=== PATIENT | male | born 1995 | race Hispanic/Latino ===

== ENCOUNTER 2016-08-02 20:12 | Emergency (ER) | payer OTHER ==
[~2016-08-02] VITALS: Ht 165.1 cm; Wt 93.0 kg
--- NOTE | 2016-08-02 21:59 | ED SKIN/ALLERGY COMPLAINT ---
History of Present Illness General Chief Complaint: Allergy Symptoms Stated Complaint: ALLERGIC RXN STARTED YEST, RASH,HAND SWELLING Source: patient, family, old records Exam Limitations: no limitations Vital Signs & Intake/Output Vital Signs & Intake/Output Vital Signs Date Time Temp Pulse Resp B/P Pulse O2 O2 Flow FiO2 Ox Delivery Rate 08/02 2218 97.7 93 18 133/75 97 Room Air 08/02 2023 97.5 101 18 133/86 98 Room Air Allergies Coded Allergies: No Known Allergies (08/02/16) Reconcile Medications Methylprednisolone. (Medrol) 4 MG TAB.DS.PK 1 DP PO AD urticaria 6 on day 1 then reduce by one tablet daily until gone Triage Note: REPORTS YESTERDAY AT NOON HE NOTICE A RASH ON HIS LEFT ELBOW AND A WHILE LATER IT SPREAD ON BILATERAL AND TRUNK. HE REPORTS THE RASH HAS BEEN INTERMITTENT SINCE. HAS BEEN TAKING OTC ANTIHISTAMINE WITH + EFFECT YET THE RASH RETURNS AFTER A WHILE. Triage Nurses Notes Reviewed? yes Onset: Abrupt Duration: day(s): (3), intermittent Timing: recent history Severity: mild, moderate Severity Numbers: 5 Location: extremities, generalized Possible Factors: no cause identified No Modifying Factors: none Associated Symptoms: DENIES HPI: This is a 20-year-old male with history of asthma presents to the emergency room with his father for evaluation complaining of intermittent pruritic rash to his hands trunk abdomen and back for the past 3 days for which he's been using over- the-counter Benadryl with improvement however he states the rash returns. He denies any shortness of breath sore throat difficulty swallowing lip or tongue swelling. No history of similar symptoms in the past. He denies any exposure to any possible known allergens no new soaps detergents or foods. He is currently on penicillin for a upper respiratory infection which he has been on in the past without suffering allergic reaction. (CHIRAG VILLAGRAN) Past History Travel History Traveled to [place] past 21 day No Medical History Any Pertinent Medical History? see below for history Respiratory: asthma Surgical History Surgical History: none Psychosocial History Past Psychosocial History Unobtainable at this time What is your primary language Bengali Tobacco Use: Never used Family History Hx Contributory? No (CHIRAG VILLAGRAN) Review of Systems Review of Systems Constitutional: Reports: see HPI. All Other Systems: Reviewed and Negative Comments Review of systems: See HPI, All other systems negative. Constitutional, no chills no fever, no malaise HEENT: No visual changes no sore throat no congestion, Cardiovascular: No chest pain , no palpitation Skin, SEE HPI Respiratory: No dyspnea no cough no sputum GI: No nausea no vomiting, no diarrhea : No dysuria Muscle skeletal: No joint pain, no back pain, no neck pain, Neurologic: No numbness n no headache Psych: No stress Heme/endocrine: No bruising no bleeding Immunology: No lymphadenopathy (CHIRAG VILLAGRAN) Physical Exam Physical Exam General Appearance: well developed/nourished, no apparent distress, alert, awake , comfortable Comments: Well-developed well-nourished patient in no apparent distress. HEENT: Atraumatic, extraocular motion intact pharynx is within normal limits there is no pharyngeal erythema no uvula displacement no lip or tongue swelling noted evidence of angioedema Neck: Supple, FROM, no lymphadenopathy Back: FROM, Nontender Cardiovascular: Regular rate and rhythms no murmurs rubs or gallops, Respiratory: Chest nontender.There were no bony deformities, no asymmetry. No respiratory distress. Patient speaking in full complete sentences. Breath sounds clear to auscultation bilaterally: NO W/R/R Extremities: full range of motion Neuro: Alert and oriented x3 Skin: Warm & dry macular rash noted to bilateral dorsal and palmar surface of the hand dorsal forearms, there is no other rash noted exposed skin Psych: Mood affect normal, normal memory normal judgment. (CHIRAG VILLAGRAN) Progress Differential Diagnosis: abscess/cellulitis, allergic reaction, anaphylaxis, angioedema, asthma, contact dermatitis, bronchitis pneumonia uri Plan of Care: Current Medications Sig/Thomas Start time Last Medication Dose Stop Time Status Admin Diphenhydramine HCl 50 MG ONCE ONE 08/02 2214 UNVr (Benadryl) 08/02 2215 Prednisone 60 MG ONCE ONE 08/02 2214 UNVr 08/02 2215 Patient clinically appears well prescription for prednisone provided, advised to follow up with his primary care physician this week return anytime sooner with any concerns answer all his questions he feels comfortable plan (CHIRAG VILLAGRAN) Departure Departure Time of Disposition: 2208 Disposition: HOME OR SELF CARE Condition: Stable Clinical Impression Primary Impression: Urticaria Referrals: TAMICA FISCHER MD (PCP/Family) Additional Instructions: Medrol Dosepak as directed Benadryl 50 mg every 8 hours as needed. Follow-up with your primary care physician this week return anytime sooner with any concerns Departure Forms: Customer Survey General Discharge Information Prescriptions: Current Visit Scripts Methylprednisolone. (Medrol) 1 DP PO AD #1 DP 6 on day 1 then reduce by one tablet daily until gone (CHIRAG VILLAGRAN) PA/SPRAGGER Co-Sign Statement Statement: ED Attending supervision documentation- [] I saw and evaluated the patient. I have also reviewed all the pertinent lab results and diagnostic results. I agree with the findings and the plan of care as documented in the PA's/SPRAGGER's documentation. [X] I have reviewed the ED Record and agree with the PA's/SPRAGGER's documentation. [] Additions or exceptions (if any) to the PAs/SPRAGGER's note and plan are summarized below: [] (SHAKIRA RODRÍGUEZ,YANG) ED Attending Observation Initial Observation Note: I have seen and personally examined JACINTO LEBRON on 08/02/16 at 2210. I agree with the current emergency department documentation. The disposition (admission or discharge) is uncertain at this time, he needs a period of observation for the following reason(s): The ED Nurse caring for this patient has been personally informed as to what the patient is being observed for. (CHIRAG VILLAGRAN)
[2016-08-02] MEDS ORDERED: MEDROL4 M2 PO (22:10)
[2016-08-02 22:19] VITALS: BP 133/75
== END 2016-08-02 22:33 ==
LOC: ERH 20:12
DX: L50.9 Urticaria, unspecified (principal)